=== PATIENT | male | born 1940 | race Caucasian/White ===

== ENCOUNTER 2018-06-07 15:27 | Inpatient (IN) ==
--- NOTE | 2018-06-07 16:08 | ED ---
HPI General Chief Complaint: Psychiatric Symptoms Stated Complaint: Psych/VCSO Time Seen by Provider: 06/08/18 12:05 Source: patient Mode of arrival: ambulatory Limitations: no limitations History of Present Illness HPI Narrative: 78-year-old male with history of dementia presents to the emergency room under a Hopkins act. Patient states he told his doctor at his appointment today that he was having increasing feelings of depression and the doctor called the police. Patient reports he has had worsening dementia, hypertension, and difficulty with his . He has a plan to shoot himself or overdose. Patient denies hallucinations or delusions but states he has occasional very bizarre behavior. States last night he was crawling around the living room floor looking for a fishing reel to try to practice fishing. He is a poor historian and states he believes he has hypertension but he does not think that he has diabetes. He denies any medical complaints at this time. MD complaint: suicidal ideation and feels depressed Onset (ago): year(s) Duration: constant History of same: Yes Relieving factors: none Exacerbating factors: none Associated psychiatric symptoms: none Treatments prior to arrival: placed on mental health hold If self harm: admits thoughts of self harm and has plan Related Data Home Medications Medication Instructions Recorded Confirmed amlodipine 2.5 mg PO DAILY 06/08/18 06/08/18 metformin 500 mg PO DAILY 06/08/18 06/08/18 rivastigmine [Exelon] 9.5 mg TRANSDERMAL DAILY 06/08/18 06/08/18 tamsulosin 0.4 mg PO DAILY 06/08/18 06/08/18 triamcinolone acetonide 1 applic TOPICAL DAILY 06/08/18 06/08/18 Previous Rx's Medication Instructions Recorded diphenhydramine HCl 25 mg PO Q6H PRN #12 cap 06/11/18 prednisone 20 mg PO DAILY #4 tab 06/11/18 Allergies Allergy/AdvReac Type Severity Reaction Status Date / Time enalapril AdvReac Unknown Cough Verified 06/08/18 18:53 Review of Systems ROS Unobtainable All other systems reviewed negative except as stated in [facility]PI [facility] Social History Social History Substance History: No History of Abuse Second Hand Smoke Exposure: Yes Smoking Status: Former smoker Tobacco Type: Cigarettes How Often Do You Have a Drink Containing Alcohol: 4 or more times a week Recent Travel in [facility] within the Last 8 Weeks: No Recent Out of Country Travel within the Last 8 Weeks: No Immunization History Tetanus Immunization: Unsure Hx Influenza Vaccine This Season: No Exam Narrative Exam Narrative: GENERAL: Well-nourished, well-developed male in no acute distress. Afebrile. Ambulatory. SKIN: Focused skin assessment warm/dry. HEAD: Normocephalic. EYES: No scleral icterus. No injection or drainage. NECK: Supple, trachea midline. No JVD or lymphadenopathy. CARDIOVASCULAR: Regular rate and rhythm without murmurs, gallops, or rubs. RESPIRATORY: Breath sounds equal bilaterally. No accessory muscle use. PSYCHIATRIC: No delusional thought processes. No hallucinations. Normal affect. Good mood. Course Initial Documented Vital Signs Temperature 98.2 F 06/07/18 15:40 Pulse Rate 94 H 06/07/18 15:40 Respiratory Rate 18 06/07/18 15:40 Blood Pressure 167/91 H 06/07/18 15:40 Pulse Oximetry 97 06/07/18 15:40 Last Documented Vital Signs Temperature 98.5 F 06/11/18 06:52 Pulse Rate 82 06/11/18 06:52 Respiratory Rate 16 06/11/18 06:52 Blood Pressure 155/72 H 06/11/18 06:52 Pulse Oximetry 96 06/11/18 06:52 Medical Decision Making MDM Narrative Medical decision making narrative: 78-year-old male with history of dementia presents to the emergency room for evaluation of suicidal ideation. Patient was at his doctor's office and made some statements that caused him to be placed under a Hopkins act. He reports feeling suicidal and plans to overdose, drink alcohol, or use a gun. He denies any physical complaints at this time. Physical exam is unremarkable. CBC and CMP are unremarkable. Alcohol is negative. Patient is medically cleared for psychiatric evaluation. Differential Diagnosis Differential Diagnosis: Mood disorder, suicidal ideation, dementia, adjustment disorder Lab Data Lab results reviewed: Yes I reviewed the patient's lab results. Result diagrams: 06/11/18 08:31 06/11/18 08:31 Lab Results 06/07/18 06/07/18 06/07/18 Range/Units 15:50 15:50 20:34 WBC 9.3 (4.0-11.0) th/mm3 RBC 4.88 (4.50-5.90) mil/mm3 Hgb 16.2 (13.0-17.0) gm/dL Hct 47.1 (39.0-51.0) % MCV 96.5 (80.0-100.0) fL MCH 33.1 (27.0-34.0) pg MCHC 34.3 (32.0-36.0) % RDW 13.1 (11.6-17.2) % Plt Count 242 (150-450) th/mm3 MPV 8.7 (7.0-11.0) fL Neut % (Auto) 77.8 H (16.0-70.0) % Lymph % (Auto) 14.5 (9.0-44.0) % [place] % (Auto) 5.7 (0.0-8.0) % Eos % (Auto) 1.2 (0.0-4.0) % Baso % (Auto) 0.8 (0.0-2.0) % Neut # (Auto) 7.2 (1.8-7.7) th/mm3 Lymph # (Auto) 1.3 (1.0-4.8) th/mm3 [place] # (Auto) 0.5 (0.0-0.9) th/mm3 Eos # (Auto) 0.1 (0.0-0.4) th/mm3 Baso # (Auto) 0.1 (0.0-0.2) th/mm3 WBC Differential . Differential Comment Auto diff final Sodium 139 (136-145) meq/L Potassium 3.6 (3.5-5.1) meq/L Chloride 104 (98-107) meq/L Carbon Dioxide 22.3 (21.0-32.0) meq/L Anion Gap 13 (5-15) meq/L BUN 15 (7-18) mg/dL Creatinine 1.00 (0.60-1.30) mg/dL Estimated GFR 72 L (>89) mL/min POC Glucose (68-110) mg/dl Random Glucose 149 H (74-106) mg/dL Calcium 9.6 (8.5-10.1) mg/dL Total Bilirubin 0.6 (0.2-1.0) mg/dL AST 22 (15-37) U/L ALT 25 (12-78) U/L Alkaline Phosphatase 58 (45-117) U/L Total Protein 7.8 (6.4-8.2) g/dL Albumin 4.0 (3.4-5.0) g/dL TSH 2.740 (0.358-3.740) uIU/mL Urine Color (Yellw/Straw) Urine Clarity (Clear) Urine pH (5.0-8.5) Ur Specific [place] (1.002-1.035) Urine Protein (Neg-Trace) mg/dL Urine Glucose (UA) (Negative) mg/dL Urine Ketones (Negative) mg/dL Urine Occult Blood (Negative) Urine Nitrate (Negative) Urine Bilirubin (Negative) Urine Urobilinogen (Less than 2) mg/dL Ur Leukocyte Esterase (Negative) Urine RBC (0-3) /hpf Urine WBC (0-5) /hpf Ur Squamous Epith Cells (0-5) /hpf Urine Bacteria (None) /hpf Hyaline Casts (0-3) /lpf Urine Mucus (Occasional) /lpf Micro UA Comment Urine Culture Comments Urine Opiates Screen Neg (Neg) Ur Barbiturates Screen Neg (Neg) Ur Amphetamines Screen Neg (Neg) U Benzodiazepines Scrn Neg (Neg) Urine Cocaine Screen Neg (Neg) U Cannabinoids Screen Neg (Neg) Serum Alcohol Less than 3 (0-5) mg/dL 06/07/18 06/08/18 06/09/18 Range/Units 20:34 23:40 07:02 WBC (4.0-11.0) th/mm3 RBC (4.50-5.90) mil/mm3 Hgb (13.0-17.0) gm/dL Hct (39.0-51.0) % MCV (80.0-100.0) fL MCH (27.0-34.0) pg MCHC (32.0-36.0) % RDW (11.6-17.2) % Plt Count (150-450) th/mm3 MPV (7.0-11.0) fL Neut % (Auto) (16.0-70.0) % Lymph % (Auto) (9.0-44.0) % [place] % (Auto) (0.0-8.0) % Eos % (Auto) (0.0-4.0) % Baso % (Auto) (0.0-2.0) % Neut # (Auto) (1.8-7.7) th/mm3 Lymph # (Auto) (1.0-4.8) th/mm3 [place] # (Auto) (0.0-0.9) th/mm3 Eos # (Auto) (0.0-0.4) th/mm3 Baso # (Auto) (0.0-0.2) th/mm3 WBC Differential Differential Comment Sodium (136-145) meq/L Potassium (3.5-5.1) meq/L Chloride (98-107) meq/L Carbon Dioxide (21.0-32.0) meq/L Anion Gap (5-15) meq/L BUN (7-18) mg/dL Creatinine (0.60-1.30) mg/dL Estimated GFR (>89) mL/min POC Glucose 110 118 H (68-110) mg/dl Random Glucose (74-106) mg/dL Calcium (8.5-10.1) mg/dL Total Bilirubin (0.2-1.0) mg/dL AST (15-37) U/L ALT (12-78) U/L Alkaline Phosphatase (45-117) U/L Total Protein (6.4-8.2) g/dL Albumin (3.4-5.0) g/dL TSH (0.358-3.740) uIU/mL Urine Color Yellow (Yellw/Straw) Urine Clarity Hazy H (Clear) Urine pH 6.0 (5.0-8.5) Ur Specific [place] 1.018 (1.002-1.035) Urine Protein Negative (Neg-Trace) mg/dL Urine Glucose (UA) 500 or greater (Negative) mg/dL Urine Ketones Trace (Negative) mg/dL Urine Occult Blood Negative (Negative) Urine Nitrate Negative (Negative) Urine Bilirubin Negative (Negative) Urine Urobilinogen Less than 2 (Less than 2) mg/dL Ur Leukocyte Esterase Trace H (Negative) Urine RBC 3 (0-3) /hpf Urine WBC 12 H (0-5) /hpf Ur Squamous Epith Cells <1 (0-5) /hpf Urine Bacteria Rare H (None) /hpf Hyaline Casts 3 (0-3) /lpf Urine Mucus Moderate H (Occasional) /lpf Micro UA Comment Culture indicated Urine Culture Comments Culture indicated Urine Opiates Screen (Neg) Ur Barbiturates Screen (Neg) Ur Amphetamines Screen (Neg) U Benzodiazepines Scrn (Neg) Urine Cocaine Screen (Neg) U Cannabinoids Screen (Neg) Serum Alcohol (0-5) mg/dL 06/10/18 06/11/18 06/11/18 Range/Units 06:22 06:43 08:31 WBC 6.5 (4.0-11.0) th/mm3 RBC 4.59 (4.50-5.90) mil/mm3 Hgb 15.2 (13.0-17.0) gm/dL Hct 44.3 (39.0-51.0) % MCV 96.4 (80.0-100.0) fL MCH 33.0 (27.0-34.0) pg MCHC 34.3 (32.0-36.0) % RDW 13.1 (11.6-17.2) % Plt Count 222 (150-450) th/mm3 MPV 8.4 (7.0-11.0) fL Neut % (Auto) 74.2 H (16.0-70.0) % Lymph % (Auto) 18.9 (9.0-44.0) % [place] % (Auto) 4.7 (0.0-8.0) % Eos % (Auto) 1.6 (0.0-4.0) % Baso % (Auto) 0.6 (0.0-2.0) % Neut # (Auto) 4.8 (1.8-7.7) th/mm3 Lymph # (Auto) 1.2 (1.0-4.8) th/mm3 [place] # (Auto) 0.3 (0.0-0.9) th/mm3 Eos # (Auto) 0.1 (0.0-0.4) th/mm3 Baso # (Auto) 0.0 (0.0-0.2) th/mm3 WBC Differential . Differential Comment Auto diff final Sodium (136-145) meq/L Potassium (3.5-5.1) meq/L Chloride (98-107) meq/L Carbon Dioxide (21.0-32.0) meq/L Anion Gap (5-15) meq/L BUN (7-18) mg/dL Creatinine (0.60-1.30) mg/dL Estimated GFR (>89) mL/min POC Glucose 130 H 123 H (68-110) mg/dl Random Glucose (74-106) mg/dL Calcium (8.5-10.1) mg/dL Total Bilirubin (0.2-1.0) mg/dL AST (15-37) U/L ALT (12-78) U/L Alkaline Phosphatase (45-117) U/L Total Protein (6.4-8.2) g/dL Albumin (3.4-5.0) g/dL TSH (0.358-3.740) uIU/mL Urine Color (Yellw/Straw) Urine Clarity (Clear) Urine pH (5.0-8.5) Ur Specific [place] (1.002-1.035) Urine Protein (Neg-Trace) mg/dL Urine Glucose (UA) (Negative) mg/dL Urine Ketones (Negative) mg/dL Urine Occult Blood (Negative) Urine Nitrate (Negative) Urine Bilirubin (Negative) Urine Urobilinogen (Less than 2) mg/dL Ur Leukocyte Esterase (Negative) Urine RBC (0-3) /hpf Urine WBC (0-5) /hpf Ur Squamous Epith Cells (0-5) /hpf Urine Bacteria (None) /hpf Hyaline Casts (0-3) /lpf Urine Mucus (Occasional) /lpf Micro UA Comment Urine Culture Comments Urine Opiates Screen (Neg) Ur Barbiturates Screen (Neg) Ur Amphetamines Screen (Neg) U Benzodiazepines Scrn (Neg) Urine Cocaine Screen (Neg) U Cannabinoids Screen (Neg) Serum Alcohol (0-5) mg/dL 06/11/18 Range/Units 08:31 WBC (4.0-11.0) th/mm3 RBC (4.50-5.90) mil/mm3 Hgb (13.0-17.0) gm/dL Hct (39.0-51.0) % MCV (80.0-100.0) fL MCH (27.0-34.0) pg MCHC (32.0-36.0) % RDW (11.6-17.2) % Plt Count (150-450) th/mm3 MPV (7.0-11.0) fL Neut % (Auto) (16.0-70.0) % Lymph % (Auto) (9.0-44.0) % [place] % (Auto) (0.0-8.0) % Eos % (Auto) (0.0-4.0) % Baso % (Auto) (0.0-2.0) % Neut # (Auto) (1.8-7.7) th/mm3 Lymph # (Auto) (1.0-4.8) th/mm3 [place] # (Auto) (0.0-0.9) th/mm3 Eos # (Auto) (0.0-0.4) th/mm3 Baso # (Auto) (0.0-0.2) th/mm3 WBC Differential Differential Comment Sodium 140 (136-145) meq/L Potassium 3.8 (3.5-5.1) meq/L Chloride 104 (98-107) meq/L Carbon Dioxide 26.1 (21.0-32.0) meq/L Anion Gap 10 (5-15) meq/L BUN 15 (7-18) mg/dL Creatinine 0.95 (0.60-1.30) mg/dL Estimated GFR 76 L (>89) mL/min POC Glucose (68-110) mg/dl Random Glucose 203 H (74-106) mg/dL Calcium 9.4 (8.5-10.1) mg/dL Total Bilirubin (0.2-1.0) mg/dL AST (15-37) U/L ALT (12-78) U/L Alkaline Phosphatase (45-117) U/L Total Protein (6.4-8.2) g/dL Albumin (3.4-5.0) g/dL TSH (0.358-3.740) uIU/mL Urine Color (Yellw/Straw) Urine Clarity (Clear) Urine pH (5.0-8.5) Ur Specific [place] (1.002-1.035) Urine Protein (Neg-Trace) mg/dL Urine Glucose (UA) (Negative) mg/dL Urine Ketones (Negative) mg/dL Urine Occult Blood (Negative) Urine Nitrate (Negative) Urine Bilirubin (Negative) Urine Urobilinogen (Less than 2) mg/dL Ur Leukocyte Esterase (Negative) Urine RBC (0-3) /hpf Urine WBC (0-5) /hpf Ur Squamous Epith Cells (0-5) /hpf Urine Bacteria (None) /hpf Hyaline Casts (0-3) /lpf Urine Mucus (Occasional) /lpf Micro UA Comment Urine Culture Comments Urine Opiates Screen (Neg) Ur Barbiturates Screen (Neg) Ur Amphetamines Screen (Neg) U Benzodiazepines Scrn (Neg) Urine Cocaine Screen (Neg) U Cannabinoids Screen (Neg) Serum Alcohol (0-5) mg/dL Discharge Plan Discharge Disposition Patient Disposition: 01 Discharge Home Discharge Condition Condition: Stable Discharge Order Discharge Orders: Discharge Order (Routine); Ordered 06/11/18 Ordered By: Antonio Polanco Discharge Details Anticipated Discharge Date: 06/11/18 Physicians Team ED Provider: Berry Li ED Midlevel Provider: Jesica Chang Primary Care Provider: Mariah Izaguirre Attending Provider: Antonio Polanco Status ED Status: Left Department Discharge Information Discharge Date/Time: 06/08/18 15:20
[2018-06-07 16:33] LABS: Baso # (Auto) 0.1 th/mm3 (0.0-0.2); Baso % (Auto) 0.8 % (0.0-2.0); Eos # (Auto) 0.1 th/mm3 (0.0-0.4); Eos % (Auto) 1.2 % (0.0-4.0); Hematocrit 47.1 % (39.0-51.0); Hemoglobin 16.2 gm/dL (13.0-17.0); Lymph # (Auto) 1.3 th/mm3 (1.0-4.8); Lymph % (Auto) 14.5 % (9.0-44.0); Mean Corpuscular HGB Conc 34.3 % (32.0-36.0); Mean Corpuscular Hemoglobin 33.1 pg (27.0-34.0); Mean Corpuscular Volume 96.5 fL (80.0-100.0); Mean Platelet Volume 8.7 fL (7.0-11.0); Mono # (Auto) 0.5 th/mm3 (0.0-0.9); Mono % (Auto) 5.7 % (0.0-8.0); Neut # (Auto) 7.2 th/mm3 (1.8-7.7); Neut % (Auto) 77.8 % (16.0-70.0); Platelet Count 242 th/mm3 (150-450); Red Blood Count 4.88 mil/mm3 (4.50-5.90); Red Cell Distribution Width 13.1 % (11.6-17.2); White Blood Count 9.3 th/mm3 (4.0-11.0)
[2018-06-07 17:15] LABS: Alanine Aminotransferase 25 U/L (12-78); Anion Gap 13 meq/L (5-15); Aspartate Aminotransferase 22 U/L (15-37); Blood Urea Nitrogen 15 mg/dL (7-18); Calcium 9.6 mg/dL (8.5-10.1); Carbon Dioxide 22.3 meq/L (21.0-32.0); Chloride 104 meq/L (98-107); Glomerular Filtration Rate 72 mL/min (>89); Glucose,Random 149 mg/dL (74-106); Potassium 3.6 meq/L (3.5-5.1); Sodium 139 meq/L (136-145)
[2018-06-07 17:26] LABS: Alkaline Phosphatase 58 U/L (45-117); Total Protein 7.8 g/dL (6.4-8.2)
[2018-06-07 20:56] LABS: Amphetamine Screen,Urine Neg (Neg); Barbiturate Screen,Urine Neg (Neg); Cannabinoid Screen,Urine Neg (Neg); Cocaine Screen,Urine Neg (Neg)
[2018-06-07 21:07] LABS: Bacteria,Urine Rare /hpf; Bilirubin,Urine Negative (Negative); Clarity,Urine Hazy (Clear); Color,Urine Yellow (Yellw/Straw); Glucose,Urine (UA) 500 or Greater mg/dL (Negative); Hyaline Casts,Urine 3 /lpf (0-3); Leukocyte Esterase,Urine Trace (Negative); Mucus,Urine Moderate /lpf (Occasional); Nitrite,Urine Negative (Negative); Specific Gravity,Urine 1.018 (1.002-1.035); Squamous Epithelial Cell,Urine <1 /hpf (0-5)
[2018-06-07 21:13] LABS: Opiate Screen,Urine Neg (Neg)
[2018-06-07] MEDS ORDERED: QUEtiapine 25 MG Tablet PO ONE (21:24)
--- NOTE | 2018-06-08 13:20 | ED ---
HPI - Psych - General Source: patient Mode of arrival: ambulatory Limitations: no limitations - History of Present Illness MD complaint: suicidal ideation, feels depressed Onset (ago): month(s) Duration: constant History of same: No Relieving factors: none Exacerbating factors: none Context: not taking psychiatric medications, significant life stressor Associated psychiatric symptoms: depression, suicidal ideation, other Associated symptoms: other (forgetfulness secondary to dementia) Treatments prior to arrival: placed on mental health hold If self harm: has plan - General Chief Complaint: Psychiatric Symptoms Stated Complaint: Psych/VCSO Time Seen by Provider: 06/08/18 12:05 - History of Present Illness HPI Narrative: istory of Present Illness HPI Narrative: 78-year-old, , , retired male, lives with his , reported history of dementia, dx 6 years ago who presents to the emergency room under a Hopkins act initiated by his PCP. The reports states the patient has depression, dementia, anxiety, marital conflicts. It also alleges that the patient told the physician that " thinks about killing himself daily, has a plan to overdose on sleeping pills, alcohol or gunshot. He indicated that he would execute his plan if his condition, particularly his marital problems do not get better". EMR reviewed. No previous contact with [facility] psychiatry. Patient is seen. Alert, o to person, place, situation and partial to time, knows the name of the president of [employer]. He is calm and cooperative. Speech is clear, logical, positive for anomia. Tearful at times. Mood depressed with difficulty falling asleep, fair appetite, fair level of energy, increase worry over financial issues. Does not appear internally preoccupied. Patient denies hallucinations or delusions but states he has occasional very bizarre behavior. States last night he was crawling around the living room floor looking for a fishing reel to try to practice fishing. Denies current suicidal ideation. Does admit to having made the statements alleged in the BA. States that his stepdaughter was killed in a hit and run accident 6 years ago and since that time there has been ongoing marital discord, frequent arguments. He is paying a debt to [facility] [employer] of $ 1,800 a month . " It wiped my savings and I cannot do the things I wanted to do in my fci". Patient is also worried over his dx of dementia as well as his concern that he may be also suffering from Parkinson. . (NurMoisesMaira) - Related Data Home Medications Medication Instructions Recorded Confirmed Unable to Obtain Home Meds 06/07/18 06/07/18 Allergies Allergy/AdvReac Type Severity Reaction Status Date / Time No Known Allergies Allergy Unverified 06/07/18 15:39 [facility] - History History Provided By: Patient - Medical History Medical History: Medical History (Last Updated 06/07/18 @ 15:46 by Amy Odonnell) Surgical history unknown (Acute) Anxiety (Acute) Major depressive disorder (Acute) Dementia (Acute) - Tobacco History Second Hand Smoke Exposure: Yes Tobacco Use In Past 30 Days: No (QUIT 50 YEARS AGO) Smoking Status: Former smoker Tobacco Type: Cigarettes - Alcohol History How Often Do You Have a Drink Containing Alcohol: 4 or more times a week - Substance Use History Substance History: No History of Abuse - Travel History Recent Travel in the [facility] Within the Last 8 Weeks: No Recent Travel Out of the Country Within the Last 8 Weeks: No - Immunization History Tetanus Immunization: Unsure Hx Influenza Vaccine This Season: No Psychiatric History - Psychiatric History History of Inpatient Treatment: No Firearms in Home: No - Psychiatric History Denies any previous suicide attempt. No previous psychiatric hospitalization. (Nur,Maira) - Legal History None (Nur,Maira) - Family Psychiatric History None reported (NurEmilys) Physical Exam - General Limitations: no limitations Mental Status Examination Consciousness: Alert Orientation: Person, Place, Situation Motor Activity: Normal gait Speech: Other (anomia) Language: Adequate Fund of Knowledge: Adequate Attention and Concentration: Other (decreased concentration) Memory: Impaired Mood: Other (depressed) Affect: Other (tearful) Thought Process & Associations: Intact Thought Content: Appropriate Initial Documented Vital Signs Temperature 98.2 F 06/07/18 15:40 Pulse Rate 94 H 06/07/18 15:40 Respiratory Rate 18 06/07/18 15:40 Blood Pressure 167/91 H 06/07/18 15:40 Pulse Oximetry 97 06/07/18 15:40 Last Documented Vital Signs Temperature 98.2 F 06/07/18 15:40 Pulse Rate 68 06/08/18 07:05 Respiratory Rate 18 06/08/18 07:05 Blood Pressure 151/73 H 06/08/18 07:05 Pulse Oximetry 97 08/03/18 07:05 MDM - Psych - Diagnosis (1) Adjustment disorder Status: Acute (2) Dementia Status: Acute - Lab Data Result diagrams: 06/07/18 15:50 06/07/18 15:50 - MDM Narrative Medical decision making narrative: 78 year old under a BA initiated by his PCP after the patient reported suicidal ideation with plan. Patient admits to having verbalized his intent although denies suicidal ideation at this time. Patient with symptoms of depression, significant psychosocial stressors including financial as well as marital. Patient will be admitted to inpatient psychiatry for further evaluation, safety and for stabilization. (Maira Nur) - Lab Data Lab Results 06/07/18 06/07/18 06/07/18 Range/Units 15:50 15:50 20:34 WBC 9.3 (4.0-11.0) th/mm3 RBC 4.88 (4.50-5.90) mil/mm3 Hgb 16.2 (13.0-17.0) gm/dL Hct 47.1 (39.0-51.0) % MCV 96.5 (80.0-100.0) fL MCH 33.1 (27.0-34.0) pg MCHC 34.3 (32.0-36.0) % RDW 13.1 (11.6-17.2) % Plt Count 242 (150-450) th/mm3 MPV 8.7 (7.0-11.0) fL Neut % (Auto) 77.8 H (16.0-70.0) % Lymph % (Auto) 14.5 (9.0-44.0) % [place] % (Auto) 5.7 (0.0-8.0) % Eos % (Auto) 1.2 (0.0-4.0) % Baso % (Auto) 0.8 (0.0-2.0) % Neut # (Auto) 7.2 (1.8-7.7) th/mm3 Lymph # (Auto) 1.3 (1.0-4.8) th/mm3 [place] # (Auto) 0.5 (0.0-0.9) th/mm3 Eos # (Auto) 0.1 (0.0-0.4) th/mm3 Baso # (Auto) 0.1 (0.0-0.2) th/mm3 WBC Differential . Differential Comment Auto diff final Sodium 139 (136-145) meq/L Potassium 3.6 (3.5-5.1) meq/L Chloride 104 (98-107) meq/L Carbon Dioxide 22.3 (21.0-32.0) meq/L Anion Gap 13 (5-15) meq/L BUN 15 (7-18) mg/dL Creatinine 1.00 (0.60-1.30) mg/dL Estimated GFR 72 L (>89) mL/min Random Glucose 149 H (74-106) mg/dL Calcium 9.6 (8.5-10.1) mg/dL Total Bilirubin 0.6 (0.2-1.0) mg/dL AST 22 (15-37) U/L ALT 25 (12-78) U/L Alkaline Phosphatase 58 (45-117) U/L Total Protein 7.8 (6.4-8.2) g/dL Albumin 4.0 (3.4-5.0) g/dL TSH 2.740 (0.358-3.740) uIU/mL Urine Color (Yellw/Straw) Urine Clarity (Clear) Urine pH (5.0-8.5) Ur Specific [place] (1.002-1.035) Urine Protein (Neg-Trace) mg/dL Urine Glucose (UA) (Negative) mg/dL Urine Ketones (Negative) mg/dL Urine Occult Blood (Negative) Urine Nitrate (Negative) Urine Bilirubin (Negative) Urine Urobilinogen (Less than 2) mg/dL Ur Leukocyte Esterase (Negative) Urine RBC (0-3) /hpf Urine WBC (0-5) /hpf Ur Squamous Epith Cells (0-5) /hpf Urine Bacteria (None) /hpf Hyaline Casts (0-3) /lpf Urine Mucus (Occasional) /lpf Micro UA Comment Urine Culture Comments Urine Opiates Screen Neg (Neg) Ur Barbiturates Screen Neg (Neg) Ur Amphetamines Screen Neg (Neg) U Benzodiazepines Scrn Neg (Neg) Urine Cocaine Screen Neg (Neg) U Cannabinoids Screen Neg (Neg) Serum Alcohol Less than 3 (0-5) mg/dL 06/07/18 Range/Units 20:34 WBC (4.0-11.0) th/mm3 RBC (4.50-5.90) mil/mm3 Hgb (13.0-17.0) gm/dL Hct (39.0-51.0) % MCV (80.0-100.0) fL MCH (27.0-34.0) pg MCHC (32.0-36.0) % RDW (11.6-17.2) % Plt Count (150-450) th/mm3 MPV (7.0-11.0) fL Neut % (Auto) (16.0-70.0) % Lymph % (Auto) (9.0-44.0) % [place] % (Auto) (0.0-8.0) % Eos % (Auto) (0.0-4.0) % Baso % (Auto) (0.0-2.0) % Neut # (Auto) (1.8-7.7) th/mm3 Lymph # (Auto) (1.0-4.8) th/mm3 [place] # (Auto) (0.0-0.9) th/mm3 Eos # (Auto) (0.0-0.4) th/mm3 Baso # (Auto) (0.0-0.2) th/mm3 WBC Differential Differential Comment Sodium (136-145) meq/L Potassium (3.5-5.1) meq/L Chloride (98-107) meq/L Carbon Dioxide (21.0-32.0) meq/L Anion Gap (5-15) meq/L BUN (7-18) mg/dL Creatinine (0.60-1.30) mg/dL Estimated GFR (>89) mL/min Random Glucose (74-106) mg/dL Calcium (8.5-10.1) mg/dL Total Bilirubin (0.2-1.0) mg/dL AST (15-37) U/L ALT (12-78) U/L Alkaline Phosphatase (45-117) U/L Total Protein (6.4-8.2) g/dL Albumin (3.4-5.0) g/dL TSH (0.358-3.740) uIU/mL Urine Color Yellow (Yellw/Straw) Urine Clarity Hazy H (Clear) Urine pH 6.0 (5.0-8.5) Ur Specific [place] 1.018 (1.002-1.035) Urine Protein Negative (Neg-Trace) mg/dL Urine Glucose (UA) 500 or greater (Negative) mg/dL Urine Ketones Trace (Negative) mg/dL Urine Occult Blood Negative (Negative) Urine Nitrate Negative (Negative) Urine Bilirubin Negative (Negative) Urine Urobilinogen Less than 2 (Less than 2) mg/dL Ur Leukocyte Esterase Trace H (Negative) Urine RBC 3 (0-3) /hpf Urine WBC 12 H (0-5) /hpf Ur Squamous Epith Cells <1 (0-5) /hpf Urine Bacteria Rare H (None) /hpf Hyaline Casts 3 (0-3) /lpf Urine Mucus Moderate H (Occasional) /lpf Micro UA Comment Culture indicated Urine Culture Comments Culture indicated Urine Opiates Screen (Neg) Ur Barbiturates Screen (Neg) Ur Amphetamines Screen (Neg) U Benzodiazepines Scrn (Neg) Urine Cocaine Screen (Neg) U Cannabinoids Screen (Neg) Serum Alcohol (0-5) mg/dL
[2018-06-08] MEDS ORDERED: amLODIPine 5 MG Tablet PO ONE (15:45)
[2018-06-08] MEDS: Docusate Sodium 100 MG Capsule PO PRN (15:54)
--- NOTE | 2018-06-08 16:37 | P.CON ---
History of Present Illness Service: Hospitalist Consult date: 06/08/18 Requesting Physician: Antonio Polanco Reason for Consult: Medical Managment Primary Care Provider: Mariah Izaguirre Chief Complaint: high blood pressure History of Present Illness: 78-year-old male with a history of dementia that presents to the emergency room under Hopkins act. He was sent by his primary care when he expressed feelings of depression and possible suicide attempt. Reported history includes hypertension and diabetes. Psychiatric history is significant for depression, dementia and anxiety. He is a somewhat vague historian. No prior visit records are found in our system. He is seen in his room. Patient is quite pleasant and denies any pain. Does endorse that he is very depressed. No shortness of breath or chest pain. No nausea vomiting or diarrhea. His appetite is good. Reports normal urination but he is struggling with some constipation. Review of Systems All other systems reviewed negative except as stated in HPI PMFSH - History History Provided By: Patient - Medical History Medical History: Medical History (Last Reviewed 06/08/18 @ 18:02 by YOEL Lovell) Surgical history unknown (Acute) Anxiety (Acute) Major depressive disorder (Acute) Dementia (Acute) Diabetes HTN (hypertension) - Family History Family History: Family History (Last Reviewed 06/08/18 @ 18:02 by YOEL Lovell) Other Family history non-contributory - Tobacco History Second Hand Smoke Exposure: Yes Tobacco Use In Past 30 Days: No (QUIT 50 YEARS AGO) Smoking Status: Former smoker Tobacco Type: Cigarettes - Alcohol History How Often Do You Have a Drink Containing Alcohol: 4 or more times a week - Substance Use History Substance History: No History of Abuse - Travel History Recent Travel in the [place] Within the Last 8 Weeks: No Recent Travel Out of the Country Within the Last 8 Weeks: No - Immunization History Tetanus Immunization: Unsure Hx Influenza Vaccine This Season: No Medications and Allergies Active Medications: Active Medications Amlodipine Besylate (Norvasc) 2.5 mg PO DAILY [facility] Docusate Sodium (Colace) 100 mg PO BID PRN PRN Reason: CONSTIPATION Last Admin: 06/08/18 15:54 Dose: 100 mg Metformin HCl (Glucophage) 500 mg PO DAILY [facility] Last Admin: 06/08/18 15:54 Dose: 500 mg Miscellaneous (Pill Splitter) 1 each OTHER UNSCH PRN PRN Reason: PILL SPLITTING Patch Removal (Remove Old Patch) 1 each T-DERMAL DAILY [facility] Rivastigmine (Exelon 9.5 Mg Patch.24hr) 1 patch T-DERMAL DAILY [facility] Tamsulosin HCl (Flomax) 0.4 mg PO DAILY [facility] Allergies Allergy/AdvReac Type Severity Reaction Status Date / Time No Known Allergies Allergy Unverified 06/07/18 15:39 Home Medications Medication Instructions Recorded Confirmed Type amlodipine 2.5 mg PO DAILY 06/08/18 06/08/18 History metformin 500 mg PO DAILY 06/08/18 06/08/18 History rivastigmine [Exelon] 9.5 mg TRANSDERMAL DAILY 06/08/18 06/08/18 History tamsulosin 0.4 mg PO DAILY 06/08/18 06/08/18 History triamcinolone acetonide 1 applic TOPICAL DAILY 06/08/18 06/08/18 History Physical Exam Vital signs: Vital Signs 06/07/18 22:29 06/08/18 07:05 06/08/18 15:34 Temperature 97.9 F Pulse Rate 74 68 88 Respiratory Rate 18 17 Blood Pressure 124/67 151/73 H 172/82 H Pulse Oximetry 98 97 98 Intake & Output 06/07/18 06/08/18 06/08/18 18:59 06:59 18:59 Weight 77.111 kg 76.9 kg Other: Weight On Admission 76.9 kg Narrative: GENERAL: Well-nourished, well-developed adult male in no obvious distress. SKIN: Warm and dry. HEAD: Atraumatic. Normocephalic. CARDIOVASCULAR: Regular rate and rhythm. RESPIRATORY: No accessory muscle use. Clear to auscultation. Breath sounds equal bilaterally. GASTROINTESTINAL: Abdomen soft, non-tender, non-distended. Positive bowel sounds. MUSCULOSKELETAL: Extremities without clubbing, cyanosis, or edema. No obvious deformities. NEUROLOGICAL: Awake and alert. No obvious cranial nerve deficits. Motor grossly within normal limits. Normal speech. Assessment and Plan - Plan 78-year-old male with a history of dementia that presents to the emergency room under Hopkins act. He was sent by his primary care when he expressed feelings of depression and possible suicide attempt. Reported history includes hypertension and diabetes. Psychiatric history is significant for depression, dementia and anxiety. He is a somewhat vague historian. No prior visit records are found in our system. Hospitalist service consulted for medical management. Depression -Managed by psychiatry Hypertension -Continue home Norvasc 2.5 mg -Clonidine as needed Diabetes -Continue home metformin Constipation -Daily stool softener; as needed laxative -Encourage good hydration CBC, BMP and UA from 06/07/18 reviewed. No significant abnormalities noted. DVT prophylaxis: Patient is ambulatory Discussed with: Patient and nurse Thank you for this consult. We appreciate the opportunity to assist you with the medical management of this patient.
[2018-06-08] MEDS ORDERED: Dextrose 50% in Water 50 ML Vial IV.PUSH PRN (17:17)
[2018-06-08] MEDS ORDERED: Bisacodyl 10 MG Supp RECTAL PRN (17:55)
[2018-06-08] MEDS: LORazepam 1 MG Tablet PO PRN (22:19)
[2018-06-09] MEDS: LORazepam 1 MG Tablet PO PRN (01:27)
[2018-06-09] MEDS: Insulin NovoLOG Aspart Correctional Sugar Inj SQ SCH ×3 (08:06→17:02)
[2018-06-09] MEDS: amLODIPine 5 MG Tablet PO SCH (09:08)
[2018-06-09] MEDS: Docusate Sodium 100 MG Capsule PO PRN (09:09)
[2018-06-09] MEDS ORDERED: Sertraline 50 MG Tablet PO ONE (10:00)
[2018-06-09] MEDS ORDERED: LORazepam 0.5 MG Tablet PO PRN (10:05)
--- NOTE | 2018-06-09 10:26 | P.HPPSY ---
Provisional Diagnosis Admission Date: June 08, 2018 13:20 [place] I.: Adjustment disorder with depressed mood Competence Certification of Person's Competence To Provide Express and Informed Consent I have personally examined Antonio Jesus, a person being served at [facility] on, June 09, 2018 1006. Express and informed consent means consent voluntarily given in writing, by a competent person, after sufficient explanation and disclosure of the subject matter involved to enable the person to make a knowing and willful decision without any element of force, fraud, deceit, duress, or other form of constraint or coercion. This person is 18 years of age or older, is not now known to be incompetent to consent to treatment with a guardian advocate, and does not have a health care surrogate or proxy currently making medical treatment decisions. I have found this person to be one of the following: [xxx] Competent to provide express and informed consent, as defined above, for voluntary admission to this facility and is competent to provide express and informed consent for treatment. He/she has the consistent capacity to make well reasoned, willful, and knowing decisions concerning his or her medical or mental health treatment. The person fully and consistently understands the purpose of the admission for examination/placement and is fully capable of personally exercising all rights assured [place] [] Incompetent to provide express and informed consent to voluntary admission, and this is incompetent to provide express and informed consent to treatment. The person must be transferred to involuntary status and a petition for a guardian advocate filed with the Circuit Court. [] Refusing to provide express and informed consent to voluntary admission but is competent to provide express and informed consent for treatment. The person must be discharged or transferred to involuntary status. Form shall be completed within 24 hours of a person's arrival at the receiving facility and filed in the clinical record of each person: 1. Admitted on a voluntary basis 2. Permitted to provide express and informed consent to his/her own treatment 3. Allowed to transfer from involuntary to voluntary status 4. Prior to permitting a person to consent to his or her own treatment after having been previously found incompetent to consent to treatment. History of Present Illness Capacity: Has capacity History of Present Illness: Patient is a 78-year-old man, , domiciled his , has 2 adult children, retired, with a past psychiatric history of dementia, no previous psychiatric admissions, previous suicide attempt or self-injurious behavior. With alcohol use disorder, with a past medical history significant for hypertension diabetes, who was brought to the ED sent from primary care doctor's office due to feeling depressed and having made suicidal statements which patient was admitted to the inpatient psychiatry for further evaluation and management. Discussion nursing staff reported the patient had endorse suicide ideation, poor sleep. Patient was found in day room noted B, cooperative interview with therapist/counselor and nurse. Patient states that he has been having domestic problems at home regarding arguments with his when she went to see his doctor and made statements of wanting to end his life and feeling depressed which patient was transferred to the hospital. Patient states that he has been having difficulty with his relation with his and there is constant arguments which bring him to feel wanting to end his life. Patient also states being affected by the of his stepdaughter several years ago and feeling guilty of having in someway cause her despite patient's daughter having due to a hit and run accident. He denies any disturbance in sleep although later does reports having taken multiple over- the-counter medications to help him sleep, denies any change in appetite, energy or concentration, has feelings of guilt as stated above. Patient has had depressed mood recently due to stressors and that he has had suicide ideations for a couple of years and most recently more frequently for the past 5 months which she is experienced once per week. Patient continues to report his main stressor is his relationship discord with his . Patient denies any perceptional disturbances or delusions at this time rest of psychiatric ROS negative. Family psychiatric history: Denies Past psychiatric history: Previous psychiatric diagnosis of dementia diagnosed 7 years ago, no previous psychiatric admissions, no previous suicide attempt or self interest behavior. Patient has no mental health outpatient provider, denies any history of abuse. Substance use history: Patient reports daily alcohol use of 2 drinks at a time last time being 5-6 days ago. Patient denies use of any other drugs Past medical history: Hypertension and asthma, diabetes Allergies: Enalapril Social history: , retired, domiciled with , has 2 adult children, is a , no legal history, no access to firearms. - Inpatient Certification I certify that the inpatient services were ordered in accordance with Medicare regulations governing the order. This includes certification that hospital inpatient services are reasonable and necessary and in the case of services not specified as inpatient-only under 42 CFR 419.22(n), that they are appropriately provided as inpatient services in accordance to with the 2-midnight benchmark under 43 CFR 412.3(e) I certify that inpatient psychiatric hospital services are medically necessary. Evaluation and treatment and/or diagnostic testing are expected to improve the patient's condition. The patient needs on a daily basis, active treatment furnished directly by or requiring the supervision of inpatient psychiatric facility personnel. Estimated Total Length of Stay (Days): 7 Plans for Post Hospital Care: Home Review of Systems All other systems reviewed negative except as stated in HPI PMFSH - History History Provided By: Patient - Medical History Medical History: Medical History (Last Reviewed 06/08/18 @ 18:02 by YOEL Lovell) Surgical history unknown (Acute) Anxiety (Acute) Major depressive disorder (Acute) Dementia (Acute) Diabetes HTN (hypertension) - Family History Family History: Family History (Last Reviewed 06/08/18 @ 18:02 by YOEL Lovell) Other Family history non-contributory - Tobacco History Second Hand Smoke Exposure: Yes Tobacco Use In Past 30 Days: No (QUIT 50 YEARS AGO) Smoking Status: Former smoker Tobacco Type: Cigarettes - Alcohol History How Often Do You Have a Drink Containing Alcohol: 4 or more times a week - Substance Use History Substance History: No History of Abuse - Substance Use Type Alcohol Route Used: By Mouth Frequency: almost daily, 2 glasses of whiskey per - Travel History Recent Travel in the [place] Within the Last 8 Weeks: No Recent Travel Out of the Country Within the Last 8 Weeks: No - Immunization History Tetanus Immunization: Unsure Hx Influenza Vaccine This Season: No Quality Measures - Psychiatric History Psychological trauma history: Denies Violence risk to others in the last 6 months: Low Violence risk to self in the last 6 months: Elevated due to recent suicide ideations. - Substance Abuse History Drug or alcohol use in the past 12 months: Denies - Patient Strengths Patient's strengths (minimum of 2): Verbal and communicative Medications and Allergies Active Medications: Active Medications Al Hydroxide/Mg Hydroxide (Milk Of Magnesia Liq) 30 ml PO Q12H PRN PRN Reason: Mild Constipation Amlodipine Besylate (Norvasc) 2.5 mg PO DAILY JERALD Last Admin: 06/09/18 09:08 Dose: 2.5 mg Bisacodyl (Dulcolax Supp) 10 mg RECTAL DAILY PRN PRN Reason: SEVERE CONSITIPATION Clonidine HCl (Catapres) 0.1 mg PO Q6H PRN PRN Reason: SBP>180, DBP>110 Dextrose (D50w Vial) 50 ml IV.PUSH UNSCH PRN PRN Reason: PER HYPOGLYCEMIA PROTOCOL Docusate Sodium (Colace) 100 mg PO BID PRN PRN Reason: CONSTIPATION Last Admin: 06/09/18 09:09 Dose: 100 mg Flumazenil (Romazecon Inj) 0.2 mg IV.PUSH Q1M PRN PRN Reason: OVERSEDATION Glucagon (Glucagon Inj) 1 mg OTHER PRN PRN PRN Reason: for Hypoglycemia Protocol Insulin Aspart (Novolog Insulin Correctional Sugar Inj) 0 unit SQ ACHS [facility]; Protocol Last Admin: 06/09/18 08:06 Dose: Not Given Lactulose (Lactulose Liq) 30 ml PO DAILY PRN PRN Reason: SEVERE CONSITIPATION Lorazepam (Ativan) 1 mg PO Q4H PRN PRN Reason: for CIWA 8-10 Last Admin: 06/09/18 01:27 Dose: 1 mg Lorazepam (Ativan) 2 mg PO Q2H PRN PRN Reason: for CIWA 11-14 Lorazepam (Ativan Inj) 2 mg IV.PUSH Q2H PRN PRN Reason: for CIWA 11-14 Lorazepam (Ativan Inj) 2 mg IV.PUSH Q1H PRN PRN Reason: for CIWA 15-20 Lorazepam (Ativan Inj) 2 mg IV.PUSH Q15M PRN PRN Reason: for CIWA > 20 Lorazepam (Ativan Inj) 1 mg IV.PUSH Q4H PRN PRN Reason: for CIWA 8-10 Lorazepam (Ativan) 0.5 mg PO Q12H PRN PRN Reason: ANXIETY AND/OR AGITATION Metformin HCl (Glucophage) 500 mg PO DAILY [facility] Last Admin: 06/09/18 09:08 Dose: 500 mg Miscellaneous (Pill Splitter) 1 each OTHER UNSCH PRN PRN Reason: PILL SPLITTING Patch Removal (Remove Old Patch) 1 each T-DERMAL DAILY [facility] Last Admin: 06/09/18 09:09 Dose: 1 each Rivastigmine (Exelon 9.5 Mg Patch.24hr) 1 patch T-DERMAL DAILY [facility] Last Admin: 06/09/18 09:08 Dose: 1 patch Sennosides (Senokot) 17.2 mg PO Q12H PRN PRN Reason: Moderate Constipation Sertraline HCl (Zoloft) 25 mg PO ONCE ONE Stop: 06/09/18 10:01 Sertraline HCl (Zoloft) 50 mg PO DAILY [facility] Tamsulosin HCl (Flomax) 0.4 mg PO DAILY [facility] Last Admin: 06/09/18 09:08 Dose: 0.4 mg Temazepam (Restoril) 7.5 mg PO [facility] Allergies Allergy/AdvReac Type Severity Reaction Status Date / Time enalapril AdvReac Unknown Cough Verified 06/08/18 18:53 Home Medications Medication Instructions Recorded Confirmed Type amlodipine 2.5 mg PO DAILY 06/08/18 06/08/18 History metformin 500 mg PO DAILY 06/08/18 06/08/18 History rivastigmine [Exelon] 9.5 mg TRANSDERMAL DAILY 06/08/18 06/08/18 History tamsulosin 0.4 mg PO DAILY 06/08/18 06/08/18 History triamcinolone acetonide 1 applic TOPICAL DAILY 06/08/18 06/08/18 History Results - Labs CBC & Chem 7: 06/07/18 15:50 06/07/18 15:50 Labs: Laboratory Results - last 24 hr 06/08/18 06/09/18 23:40 07:02 POC Glucose 110 118 H Exam Vital signs: Vital Signs 06/08/18 15:34 06/08/18 17:14 06/08/18 17:25 Temperature 97.9 F 97.9 F Pulse Rate 88 77 88 Respiratory Rate 17 17 Blood Pressure 172/82 H 162/75 H 172/82 H Pulse Oximetry 98 98 06/09/18 06:38 Temperature 97.6 F Pulse Rate 88 Respiratory Rate 16 Blood Pressure 128/67 Pulse Oximetry 97 Intake & Output 06/08/18 06/09/18 06/09/18 18:59 06:59 18:59 Intake Total 240 / 240 Balance 240 / 240 Weight 76.9 kg Intake: Oral 240 / 240 Other: Date of Last Bowel Movement 06/06/18 Weight On Admission 76.9 kg Narrative: Patient not noted to be acute distress, no gross motor of maladies no signs of tremor or EPS, no psychomotor agitation or retardation. - Constitutional no acute distress, cooperative Mental Status Examination Appearance: Appropriate Consciousness: Alert Orientation: Person, Place, Situation Motor Activity: Normal gait Speech: Unremarkable Language: Adequate Fund of Knowledge: Adequate Attention and Concentration: Other (Fair occasionally loses track of topic) Memory: Impaired Mood: Other (depressed) Affect: Sad, Other (tearful) Thought Process & Associations: Intact, Linear Thought Content: Appropriate Hallucination Type: None Delusion Type: None Suicidal Ideation: Yes (Denies today) Suicidal Plan: No Suicidal Intention: No Homicidal Ideation: No Homicidal Plan: No Homicidal Intention: No Insight: Fair Judgment: Impulsive Assessment and Plan - Assessment (1) Adjustment disorder Code(s): F43.20 - Adjustment disorder, unspecified Status: Acute (2) Dementia Code(s): F03.90 - Unspecified dementia without behavioral disturbance Status: Acute - Plan Plan: Estimated LOS: [] days Patient is a 78-year-old man, who carries diagnoses of dementia, no previous psychiatric admissions, previous suicide attempts of interest behavior , who was brought to the ED referred by his primary care doctor due to depressive symptoms as well as having stated suicidal ideation which patient was admitted to the inpatient psychiatry for further evaluation and management. Patient this time endorses depressed mood along with ongoing suicide ideations in the context of multiple psychosocial stressors. Patient this time has capacity to consent for treatment and has capacity to sign voluntary admission at this time. Patient has neurocognitive deficits is likely moderate which further cognitive assessments will be done during admission. We will start sertraline 25 mg p.o. 1 and 50 mg p.o. daily thereafter, temazepam 7.5 mg p.o. at bedtime for insomnia. We will continue rest of medications. Hospitalist input appreciated. We will continue to monitor mood and behavior. Discharge planning a progress. Justification for Continued Inpatient Stay: At risk for further decompensation at lower level of care. (2) Dementia Qualifiers: Dementia type: unspecified type Dementia behavioral disturbance: without behavioral disturbance Qualified Code(s): F03.90 - Unspecified dementia without behavioral disturbance
--- NOTE | 2018-06-09 16:33 | P.PN ---
Subjective Interval history: Patient is seen in room. Tells me that he had an okay night. No chest pain or shortness of breath. He is having some wheezing in the morning and would like an albuterol inhaler. Tells me he uses his at home every morning. Denies any nausea vomiting or diarrhea. He is eating well. He was able to move his bowels. Physical Exam Vital signs: Vital Signs 06/08/18 17:14 06/08/18 17:25 06/09/18 06:38 Temperature 97.9 F 97.6 F Pulse Rate 77 88 88 Respiratory Rate 17 16 Blood Pressure 162/75 H 172/82 H 128/67 Pulse Oximetry 98 97 06/09/18 15:25 Temperature 98.3 F Pulse Rate 97 H Respiratory Rate 16 Blood Pressure 128/58 L Pulse Oximetry 97 Intake & Output 06/08/18 06/09/18 06/09/18 18:59 06:59 18:59 Intake Total 240 / 240 Balance 240 / 240 Weight 76.9 kg Intake: Oral 240 / 240 Other: Date of Last Bowel Movement 06/06/18 06/09/18 Weight On Admission 76.9 kg Narrative: GENERAL: Well-nourished, well-developed adult male in no obvious distress. SKIN: Warm and dry. HEAD: Atraumatic. Normocephalic. CARDIOVASCULAR: Regular rate and rhythm. RESPIRATORY: No accessory muscle use. Clear to auscultation. Breath sounds equal bilaterally. GASTROINTESTINAL: Abdomen soft, non-tender, non-distended. Positive bowel sounds. MUSCULOSKELETAL: Extremities without clubbing, cyanosis, or edema. No obvious deformities. NEUROLOGICAL: Awake and alert. No obvious cranial nerve deficits. Motor grossly within normal limits. Normal speech. Results - Labs CBC & Chem 7: 06/07/18 15:50 06/07/18 15:50 Laboratory Results - last 24 hr 06/08/18 06/09/18 23:40 07:02 POC Glucose 110 118 H Microbiology 06/07/18 20:34 Clean Catch Urine Urine Culture - Final 10-50,000 cfu/mL mixed gram positive paul (probable contaminants) Assessment and Plan - Plan 78-year-old male with a history of dementia that presents to the emergency room under Hopkins act. He was sent by his primary care when he expressed feelings of depression and possible suicide attempt. Reported history includes hypertension and diabetes. Psychiatric history is significant for depression, dementia and anxiety. He is a somewhat vague historian. No prior visit records are found in our system. Hospitalist service consulted for medical management. Depression -Managed by psychiatry Hypertension -Continue home Norvasc 2.5 mg -Clonidine as needed Diabetes -Continue home metformin Asthma -Continue home albuterol inh Constipation -Daily stool softener; as needed laxative -Encourage good hydration CBC, BMP and UA from 06/07/18 reviewed. No significant abnormalities noted. DVT prophylaxis: Patient is ambulatory Discussed with: Patient and nurse
[2018-06-09] MEDS ORDERED: MethylPREDNISolone Sod Succinate Inj 40 MG/ML Vial IM ONE (18:05)
[2018-06-10] MEDS: Insulin NovoLOG Aspart Correctional Sugar Inj SQ SCH (07:44)
[2018-06-10] MEDS: amLODIPine 5 MG Tablet PO SCH (08:18)
[2018-06-10] MEDS ORDERED: Sertraline 50 MG Tablet PO SCH (09:00)
--- NOTE | 2018-06-10 13:52 | P.PNPSY ---
Subjective Remarks: Reviewed electronic medical records and discussed case with staff. Follow-up was conducted in the day room. The nurse reports patient has been stable but a little forgetful. His been compliant with medications. Today he states that he feels "pretty good". He slept well and his appetite has been good. He had an incident with some facial swelling which she reports is "going down". I still note some swelling to his upper lip and he is being followed by medical service. Staff reports no behaviors from the patient. His however, has been calling frequently and is quite intrusive into the patient's care. Mental Status Examination Appearance: Appropriate Consciousness: Alert Orientation: Person, Place, Situation Motor Activity: Normal gait Speech: Unremarkable Language: Adequate Fund of Knowledge: Adequate Attention and Concentration: Other (Fair occasionally loses track of topic) Memory: Impaired Mood: Other (depressed) Affect: Sad, Other (tearful) Thought Process & Associations: Intact, Linear Thought Content: Appropriate Hallucination Type: None Delusion Type: None Suicidal Ideation: Yes (Denies today) Suicidal Plan: No Suicidal Intention: No Homicidal Ideation: No Homicidal Plan: No Homicidal Intention: No Insight: Fair Judgment: Impulsive Assessment and Plan - Assessment (1) Adjustment disorder Code(s): F43.20 - Adjustment disorder, unspecified Status: Acute - Plan Plan: Patient will be reevaluated tomorrow by the attending psychiatrist. Continue with current treatment plan. Justification for Continued Inpatient Stay: Moving this patient to a less restrictive environment would likely result in decompensation.
--- NOTE | 2018-06-10 14:15 | P.PN ---
Subjective Interval history: Patient is seen in his room. He tells me that he is doing fine. The swelling in his lip has gone down some but is still present. He tells me that this has happened to him a couple times in the past but he is not sure how long ago. He says his lip will just swell up, last time it happened they were in the car driving on a trip. He is not sure what he took but he remembers taking something and eventually the swelling just went away. He has never had any problem breathing when this happens. It is never happened with a new food or medication that he knows of, however the patient is a somewhat poor historian. He denies any shortness of breath or feeling like he cannot swallow. No dizziness or syncope. No nausea vomiting or diarrhea. No chest pain. Physical Exam Vital signs: Vital Signs 06/09/18 15:25 06/09/18 17:51 06/10/18 05:23 Temperature 98.3 F 97.7 F 98.1 F Pulse Rate 97 H 86 85 Respiratory Rate 16 16 16 Blood Pressure 128/58 L 162/79 H 135/71 Pulse Oximetry 97 96 95 Intake & Output 06/09/18 06/10/18 06/10/18 18:59 06:59 18:59 Intake Total 480 / 480 Balance 480 / 480 Intake: Oral 480 / 480 Other: Date of Last Bowel Movement 06/09/18 06/09/18 Narrative: GENERAL: Well-nourished, well-developed adult male in no obvious distress. SKIN: Warm and dry. HEAD: Atraumatic. Normocephalic. Upper lip is swollen, more so on the left than right. No indication of airway involvement. Tongue appears normal. CARDIOVASCULAR: Regular rate and rhythm. RESPIRATORY: No accessory muscle use. Clear to auscultation. Breath sounds equal bilaterally. GASTROINTESTINAL: Abdomen soft, non-tender, non-distended. Positive bowel sounds. MUSCULOSKELETAL: Extremities without clubbing, cyanosis, or edema. No obvious deformities. NEUROLOGICAL: Awake and alert. No obvious cranial nerve deficits. Motor grossly within normal limits. Normal speech. Results - Labs CBC & Chem 7: 06/07/18 15:50 06/07/18 15:50 Laboratory Results - last 24 hr 06/10/18 06:22 POC Glucose 130 H Microbiology 06/07/18 20:34 Clean Catch Urine Urine Culture - Final 10-50,000 cfu/mL mixed gram positive paul (probable contaminants) Assessment and Plan - Plan 78-year-old male with a history of dementia that presents to the emergency room under [facility] act. He was sent by his primary care when he expressed feelings of depression and possible suicide attempt. Reported history includes hypertension and diabetes. Psychiatric history is significant for depression, dementia and anxiety. He is a somewhat vague historian. No prior visit records are found in our system. Hospitalist service consulted for medical management. Depression -Managed by psychiatry Angioedema-upper lip -Does not appear to be provoked by new food. Patient has been given Zoloft which he was not known to take previously, however patient reports previous episodes so it is unlikely this is related to Zoloft. -Benadryl 25 mg 3 times daily. Prednisone 20 mg 5 days. Patient did receive IM Benadryl and Solu-Medrol 06/09. -Recommend to patient that he consider following up with his PCP and getting allergy testing and possible EpiPen after discharged. Hypertension -Continue home Norvasc 2.5 mg -Clonidine as needed Diabetes -Continue home metformin Asthma -Continue home albuterol inh Constipation -Daily stool softener; as needed laxative -Encourage good hydration CBC, BMP and UA from 06/07/18 reviewed. BG stable 110-130. No significant abnormalities noted. DVT prophylaxis: Patient is ambulatory Discussed with: Patient and nurse
[2018-06-11] MEDS: amLODIPine 5 MG Tablet PO SCH (09:19)
[2018-06-11] MEDS: predniSONE 20 MG Tablet PO SCH ×2 (09:19→12:22)
[2018-06-11 09:36] LABS: Baso % (Auto) 0.6 % (0.0-2.0); Eos # (Auto) 0.1 th/mm3 (0.0-0.4); Eos % (Auto) 1.6 % (0.0-4.0); Hematocrit 44.3 % (39.0-51.0); Hemoglobin 15.2 gm/dL (13.0-17.0); Lymph # (Auto) 1.2 th/mm3 (1.0-4.8); Lymph % (Auto) 18.9 % (9.0-44.0); Mean Corpuscular HGB Conc 34.3 % (32.0-36.0); Mean Corpuscular Volume 96.4 fL (80.0-100.0); Mean Platelet Volume 8.4 fL (7.0-11.0); Mono # (Auto) 0.3 th/mm3 (0.0-0.9); Mono % (Auto) 4.7 % (0.0-8.0); Neut # (Auto) 4.8 th/mm3 (1.8-7.7); Neut % (Auto) 74.2 % (16.0-70.0); Platelet Count 222 th/mm3 (150-450); Red Blood Count 4.59 mil/mm3 (4.50-5.90); Red Cell Distribution Width 13.1 % (11.6-17.2); White Blood Count 6.5 th/mm3 (4.0-11.0)
--- NOTE | 2018-06-11 09:56 | P.PN ---
Subjective Interval history: Patient is seen in day room. Swelling in his lip has improved. Patient did say it was itchy overnight but it went away with the Benadryl. Still does not remember what may have triggered it previously. Denies previously taking Zoloft but does acknowledge that he has a poor memory. Physical Exam Vital signs: Vital Signs 06/10/18 18:21 06/11/18 06:52 Temperature 97.8 F 98.5 F Pulse Rate 100 H 82 Respiratory Rate 18 16 Blood Pressure 157/83 H 155/72 H Pulse Oximetry 95 96 Intake & Output 06/10/18 06/11/18 06/11/18 18:59 06:59 18:59 Other: Date of Last Bowel Movement 06/09/18 Narrative: GENERAL: Well-nourished, well-developed adult male in no obvious distress. SKIN: Warm and dry. HEAD: Atraumatic. Normocephalic. Upper lip is swollen, more so on the left than right. No indication of airway involvement. Tongue appears normal. CARDIOVASCULAR: Regular rate and rhythm. RESPIRATORY: No accessory muscle use. Clear to auscultation. Breath sounds equal bilaterally. GASTROINTESTINAL: Abdomen soft, non-tender, non-distended. Positive bowel sounds. MUSCULOSKELETAL: Extremities without clubbing, cyanosis, or edema. No obvious deformities. NEUROLOGICAL: Awake and alert. No obvious cranial nerve deficits. Motor grossly within normal limits. Normal speech. Results - Labs CBC & Chem 7: 06/11/18 08:31 06/07/18 15:50 Laboratory Results - last 24 hr 06/11/18 06/11/18 06:43 08:31 WBC 6.5 RBC 4.59 Hgb 15.2 Hct 44.3 MCV 96.4 MCH 33.0 MCHC 34.3 RDW 13.1 Plt Count 222 MPV 8.4 Neut % (Auto) 74.2 H Lymph % (Auto) 18.9 [place] % (Auto) 4.7 Eos % (Auto) 1.6 Baso % (Auto) 0.6 Neut # (Auto) 4.8 Lymph # (Auto) 1.2 [place] # (Auto) 0.3 Eos # (Auto) 0.1 Baso # (Auto) 0.0 WBC Differential . Differential Comment Auto diff final POC Glucose 123 H Assessment and Plan - Plan 78-year-old male with a history of dementia that presents to the emergency room under [facility] act. He was sent by his primary care when he expressed feelings of depression and possible suicide attempt. Reported history includes hypertension and diabetes. Psychiatric history is significant for depression, dementia and anxiety. He is a somewhat vague historian. No prior visit records are found in our system. Hospitalist service consulted for medical management. Depression -Managed by psychiatry Angioedema-upper lip -Does not appear to be provoked by new food. Patient has been given Zoloft which he was not known to take previously, however patient reports previous episodes so it is unlikely this is related to Zoloft. -Benadryl 25 mg 3 times daily. Prednisone 20 mg 5 days. Patient did receive IM Benadryl and Solu-Medrol 06/09. Patient is being discharged today -continue Benadryl and prednisone; Rx ordered. -Recommend to patient that he consider following up with his PCP and getting allergy testing and possible EpiPen after discharged. Hypertension -Continue home Norvasc 2.5 mg -Clonidine as needed Diabetes -Continue home metformin Asthma -Continue home albuterol inh Constipation -Daily stool softener; as needed laxative -Encourage good hydration CBC, BMP and UA from 06/07/18 reviewed. BG stable 110-130. No significant abnormalities noted. DVT prophylaxis: Patient is ambulatory Discussed with: Patient and nurse and Dr. Polanco Patient appears to be medically stable. Agree with discharge plan. Hospitalist service signing off.
[2018-06-11 10:01] LABS: Calcium 9.4 mg/dL (8.5-10.1); Carbon Dioxide 26.1 meq/L (21.0-32.0); Potassium 3.8 meq/L (3.5-5.1)
--- NOTE | 2018-06-11 10:01 | P.DSPSY ---
Psychiatry Discharge Summary Inpatient Psychiatric care?: Yes Advance Directives: Yes Mental Health Advance Directive: No Health Care Proxy: No - Admission Admission Date: June 08, 2018 13:20 - Admission Diagnosis (1) Adjustment disorder Code(s): F43.20 - Adjustment disorder, unspecified Brief History: Patient is a 78-year-old man, , domiciled his , has 2 adult children, retired, with a past psychiatric history of dementia, no previous psychiatric admissions, previous suicide attempt or self-injurious behavior. With alcohol use disorder, with a past medical history significant for hypertension diabetes, who was brought to the ED sent from primary care doctor's office due to feeling depressed and having made suicidal statements which patient was admitted to the inpatient psychiatry for further evaluation and management. Discussion nursing staff reported the patient had endorse suicide ideation, poor sleep. Patient was found in day room noted B, cooperative interview with therapist/counselor and nurse. Patient states that he has been having domestic problems at home regarding arguments with his when she went to see his doctor and made statements of wanting to end his life and feeling depressed which patient was transferred to the hospital. Patient states that he has been having difficulty with his relation with his and there is constant arguments which bring him to feel wanting to end his life. Patient also states being affected by the of his stepdaughter several years ago and feeling guilty of having in someway cause her despite patient's daughter having due to a hit and run accident. He denies any disturbance in sleep although later does reports having taken multiple over- the-counter medications to help him sleep, denies any change in appetite, energy or concentration, has feelings of guilt as stated above. Patient has had depressed mood recently due to stressors and that he has had suicide ideations for a couple of years and most recently more frequently for the past 5 months which she is experienced once per week. Patient continues to report his main stressor is his relationship discord with his . Patient denies any perceptional disturbances or delusions at this time rest of psychiatric ROS negative. Family psychiatric history: Denies Past psychiatric history: Previous psychiatric diagnosis of dementia diagnosed 7 years ago, no previous psychiatric admissions, no previous suicide attempt or self interest behavior. Patient has no mental health outpatient provider, denies any history of abuse. Substance use history: Patient reports daily alcohol use of 2 drinks at a time last time being 5-6 days ago. Patient denies use of any other drugs Past medical history: Hypertension and asthma, diabetes Allergies: Enalapril Social history: , retired, domiciled with , has 2 adult children, is a , no legal history, no access to firearms. Tobacco Use In Past 30 Days: No (QUIT 50 YEARS AGO) How Often Do You Have a Drink Containing Alcohol: 4 or more times a week Hospital Course: Patient's hospital course was uneventful, he showed compliance with his medications. There is no behavior problems. He has been communication with his and with his son. He denies suicidality homicidality voice or visions. He is contemplating going up and staying with his biological son for a period of time in [facility] while working out relationship issues with his . She also appears to be amenable to that. No Rx by me. Zoloft has been discontinued. - Discharge Discharge Date: 06/11/18 - Discharge Diagnosis (1) Adjustment disorder Diagnosis: Principal Code(s): F43.20 - Adjustment disorder, unspecified Status: Acute Discharge Disposition: Home - Discharge Instructions Discharge Diet: Regular Diet Activities You Can Perform: Regular- No Restrictions - Discharge Time > 30 minutes Mental Status Examination Appearance: Appropriate Consciousness: Alert Orientation: Person, Place, Situation Motor Activity: Normal gait Speech: Unremarkable Language: Adequate Fund of Knowledge: Adequate Attention and Concentration: Other (Fair occasionally loses track of topic) Memory: Impaired Mood: Other (depressed) Affect: Sad, Other (tearful) Thought Process & Associations: Intact, Linear Thought Content: Appropriate Hallucination Type: None Delusion Type: None Suicidal Ideation: Yes (Denies today) Suicidal Plan: No Suicidal Intention: No Homicidal Ideation: No Homicidal Plan: No Homicidal Intention: No Insight: Fair Judgment: Impulsive Discharge/Advance Care Plan - Results Vital Signs: Last Vital Signs Temp 98.5 F 06/11/18 06:52 Pulse 82 06/11/18 06:52 Resp 16 06/11/18 06:52 BP 155/72 H 06/11/18 06:52 Pulse Ox 96 06/11/18 06:52 Lab Results: Abnormal Lab Results 06/11/18 06/11/18 06:43 08:31 WBC 6.5 RBC 4.59 Hgb 15.2 Hct 44.3 MCV 96.4 MCH 33.0 MCHC 34.3 RDW 13.1 Plt Count 222 MPV 8.4 Neut % (Auto) 74.2 H Lymph % (Auto) 18.9 [place] % (Auto) 4.7 Eos % (Auto) 1.6 Baso % (Auto) 0.6 Neut # (Auto) 4.8 Lymph # (Auto) 1.2 [place] # (Auto) 0.3 Eos # (Auto) 0.1 Baso # (Auto) 0.0 WBC Differential . Differential Comment Auto diff final POC Glucose 123 H Laboratory Results TSH 2.740 uIU/mL (0.358-3.740) 06/07/18 15:50 Urine Culture Comments Culture indicated 06/07/18 20:34 Summary of Procedures: None done Pending Results: None - Medications Number of antipsychotic medications at discharge: 0 - Discharge Care Plan Goals to Promote Your Health: * To prevent worsening of your condition and complications * To maintain your health at the optimal level Directions to Meet Your Goals: Take your medications as prescribed Follow your dietary instruction Follow activity as directed Keep your appointments as scheduled Take your immunizations and boosters as scheduled If your symptoms worsen call your PCP, if no PCP go to Urgent Care Center or Emergency Room For 29/05 questions related to your inpatient stay or results of tests pending at discharge, please contact Dr. Antonio Polanco MD at Smoking is Dangerous to Your Health. Avoid second hand smoking (1) Adjustment disorder Qualifiers: Adjustment disorder type: with depressed mood Qualified Code(s): F43.21 - Adjustment disorder with depressed mood (1) Adjustment disorder Qualifiers: Adjustment disorder type: with depressed mood Qualified Code(s): F43.21 - Adjustment disorder with depressed mood
[2018-06-11] MEDS: Insulin NovoLOG Aspart Correctional Sugar Inj SQ SCH (12:21)
== END 2018-06-11 12:30 | disposition home or self-care (01) ==
LOC: NEPJ 15:27 → NEDA 06-08 13:20 → H260 06-08 15:07
PROVIDERS: ADMIT Psychiatry & Neurology Psychiatry; ATTEND Psychiatry & Neurology Psychiatry